=== PATIENT | female | born 2000 ===

== ENCOUNTER 2025-01-09 15:04 | Inpatient (IN) | payer OTHER ==
[~2025-01-09] VITALS: Ht 165.1 cm; Wt 90.9 kg
[2025-01-10 14:37] VITALS: BP 122/75
[2025-01-10] MEDS ORDERED: TraZODone HCl 50 MG Tab PO PRN (14:50)
[2025-01-10] MEDS ORDERED: Melatonin 3 MG Tab PO PRN (14:50)
[2025-01-10] MEDS ORDERED: Acetaminophen 325 MG TABLET PO PRN (14:50)
[2025-01-10] MEDS ORDERED: Aluminum Hydroxide 320MG/5ML 473 ML PO PRN (14:50)
[2025-01-10] MEDS ORDERED: Calcium Carbonate 500 MG Tab Chew PO PRN (14:50)
[2025-01-10] MEDS ORDERED: Polyethylene Glycol 3350 17 gm PO PRN (14:50)
[2025-01-10] MEDS ORDERED: OLANZapine ODT 10 MG Tab MM PRN (14:50)
[2025-01-10] MEDS ORDERED: FLU VACC TS2024-25(6MOS UP)/PF 45 MCG/0.5 ML SYRINGE IM SCH (14:55)
[2025-01-10] MEDS ORDERED: Ibuprofen 600 MG Tab PO PRN (14:55)
[2025-01-10] MEDS ORDERED: Haloperidol 5 MG Tab PO PRN (14:55)
[2025-01-10] MEDS ORDERED: Haloperidol Lactate Inj. 5 MG/ML Injection IM PRN (14:55)
[2025-01-10] MEDS ORDERED: DiphenhydrAMINE HCl 50 MG Cap PO PRN (14:55)
[2025-01-10] MEDS ORDERED: LORazepam 2 MG/ML 1ML Injection IM PRN (15:00)
[2025-01-10] MEDS ORDERED: OLAN5 PO (15:02)
[2025-01-10] MEDS ORDERED: GABA300 PO (15:03)
[2025-01-10] MEDS ORDERED: SENNA LAXATIVE8.6 MG PO (15:05)
[2025-01-10] MEDS ORDERED: Ondansetron 4 MG SoluTab MM PRN (15:05)
[2025-01-10] MEDS ORDERED: DOCU100 PO (15:06)
[2025-01-10] MEDS ORDERED: BUPRENORPHIN-N1 EAC1 SL (15:07)
[2025-01-10 15:39] VITALS: BP 122/75
--- NOTE | 2025-01-10 18:17 | NUR ---
ADMISSION SUMMARY PT ADMITTED FROM [facility] IN [place]. PT HAS DELUSIONS OF BEING IN THE WITNESS PROTECTION PROGRAM AND BEING IN THE [employer]. PT NOT AWARE THAT SHE IS IN A PSYCHIATRIC FACILITY, BUT BELIEVES THAT SHE IS IN WITNESS PROTECTION. SHE DOES NOT WISH TO GO BY LEONOR SINCE SHE BELIEVES THAT SHE IS IN [place]IDING AND WISHES TO GO BY "ZARIYYA" INSTEAD. SHE DENIES SI, HI, OR ANY HALLUCINATIONS. PT ORIENTED TO THE UNIT, SHOWERED, AND ATE MEALS WITH PEERS. PT TAKES SUBOXONE AT HOME AND REQUESTING SUBOXONE TO BE ORDERED WHILE IN HOSPITAL. PT MONITORED VIA Q15 ROUNDING FOR SAFETY. WILL REPORT TO ONCOMING RN.
[2025-01-10 20:22] VITALS: BP 118/73
[2025-01-10] MEDS ORDERED: OLANZapine 10 MG Tab PO SCH (21:00)
[2025-01-10] MEDS ORDERED: Buprenorphine HCL/Naloxone HCL 8MG-2MG Tab SL SCH (21:00)
--- NOTE | 2025-01-11 04:28 | NUR ---
SHIFT SUMMARY PT IN BED AT START OF SHIFT, AWAKES EASILY. SHE IS ORIENTED TO SELF, AND STATES SHE KNOWS SHE IS AT A MEDICAL FACILITY. PT STATED HER MOOD "I'M PISSED OFF. I'M GOING INTO WITNESS PROTECTION SO THIS IS BULLSHIT." PT AFFECT IS IRRITABLE/FRUSTRATED THAT SHE IS HERE, BUT REMAINED CALM AND COOPERATIVE WITH CARE. PT REMINDED OF UNIT ORIENTATION/PROTOCOLS. PT HAD EVENING SNACK. SHE WAS COMPLIANT WITH MEDICATIONS AND RECEIVED PRN TRAZODONE FOR SLEEP. PT WENT BACK TO BED AFTER SNACK AND HAS APPEARED TO BE SLEEPING THROUGHOUT THE NIGHT. Q15 MINUTE CHECKS TO CONTINUE PER UNIT PROTOCOL.
[2025-01-11 08:22] VITALS: BP 105/61
[2025-01-11] MEDS ORDERED: Multivitamins 1 Tab PO SCH (09:00)
[2025-01-11] MEDS ORDERED: DiphenhydrAMINE HCl 50 MG/ML 1ML Vial IM PRN (09:00)
[2025-01-11] MEDS ORDERED: LORazepam 2 MG Tab PO PRN (09:00)
[2025-01-11] MEDS ORDERED: Nicotine Polacrilex 2 MG Gum PO PRN (15:50)
--- NOTE | 2025-01-11 16:39 | NUR ---
SHIFT SUMMARY PT A/O X PERSON, PLACE, AND TIME. SHE IS NOT ALERT TO HER CURRENT SITUATION. SHE BELIEVES THAT SHE NEEDS TO GO INTO THE WITNESS PROTECTION PROGRAM. SHE IS COOPERATIVE WITH CARE AND COMPLIANT WITH HER MEDICATIONS. SHE DID NOT ATTEND GROUPS THIS SHIFT BUT DID ATTEND MEALS. SHE IS BEGINNING TO INTERACT MORE WITH OTHERS AND IS OUT ON THE MILEU AT THIS TIME. SHE DENIES SI, HI, OR ANY HALLUCINATIONS BUT HAS PARANOID DELUSIONS AT TIMES. SHE BELIEVES THAT SHE HAS MULTIPLE "GURVINDER"S IN HER BODY. SHE IS MONITORED VIA Q15 ROUNDING FOR SAFETY.
[2025-01-11 20:51] VITALS: BP 120/79
--- NOTE | 2025-01-12 04:15 | NUR ---
SHIFT SUMMARY PT IN BED AT START OF SHIFT, AWAKES EASILY. PT WAS INITIALLY PLEASANT AND CALM, DENIED ANY SI, HI OR HALLUCINATIONS, BUT DURING ASSESSMENT THE PATIENT BECAME "IRRITATED" WITH QUESTIONS AND STATED THAT SHE HAS "VINOD IMPLANTS" AND TALKING ABOUT BEING "HARD WIRED". PT ORIENTED TO SELF AND PLACE, SHE IS STILL STATING THAT SHE IS IN THE WITNESS PROTECTION PROGRAM. PT HAD EVENING SNACK AND WAS COMPLIANT WITH EVENING MEDS. SHE DECLINED NEEDING ANY MEDICATION TO ASSIST WITH SLEEPING. PT HAS BEEN IN BED SINCE AROUND 2029, AND APPEARS TO HAVE SLEPT WELL. Q15 MINUTE CHECKS TO CONTINUE PER UNIT PROTOCOL.
[2025-01-12 06:51] LABS: CHOL/HDL RATIO 3.1; Cholesterol 118 mg/dL (50-200); HDL Cholesterol 38 mg/dL (>39); LDL/HDL RATIO 1.6; Low Density Lipoprotein Chol 61 mg/dL (0-110); Triglycerides 96 mg/dL (30-140); Very Low Density Lipoprot Chol 19 mg/dL (6-28)
[2025-01-12 08:13] VITALS: BP 114/67
--- NOTE | 2025-01-12 15:41 | NUR ---
SHIFT ASSESSMENT: PT WAS VERY COOPERATIVE WITH CARE, SHE DENIED SI, HI, AVH, ANXIETY AND PAIN. HER MOOD WAS, "I THINK IT'S GOOD." PT HAS ATTENDED GROUPS AND PARTICIPATED IN THE PT MILIEU. HER AFFECT IS EUTHYMIC, PT IS PRESENTLY RESTING IN BED. NO MENTION OF VINOD IMPLANTS, BEING HARD WIRED OR THE WITNESS PROTECTION PROGRAM. SHE HAS BEEN PLEASANT TODAY.
--- NOTE | 2025-01-12 19:24 | NUR ---
PT COMPLAINED OF CONSTIPATION X3 DAYS, MIRALAX 17GMS GIVEN. PT IN GOOD HUMOR AND WALKING THE HALLS WITH A PEER.
[2025-01-12 20:18] VITALS: BP 128/70
--- NOTE | 2025-01-13 04:13 | NUR ---
SHIFT SUMMARY PT PRESENT IN HALLWAY, TALKING AND WALKING WITH PEERS AT START OF SHIFT. SHE IS PLEASANT AND COOPERATIVE WITH CARE. DENIES ANY SI, HI, THOUGHTS OF SELF HARM OR ANY HALLUCINATIONS. SHE DID NOT MENTION ANYTHING ABOUT BEING IN THE WITNESS PROTECTION PROGRAM. PT HAD EVENING SNACK, WAS COMPLIANT WITH MEDICATIONS AND RECEIVED PRN TRAZODONE. PT WENT TO BED AROUND 2130 AND HAS APPEARED TO SLEEP WELL. Q15 MINUTE CHECKS TO CONTINUE PER UNIT PROTOCOL FOR SAFETY.
[2025-01-13 08:09] VITALS: BP 112/66
--- NOTE | 2025-01-13 09:55 | NUR ---
SHIFT ASSESSMENT: PT IS PLEASANT AND COOPERATIVE WITH CARE, SHE DENIED FEELINGS OF SELF-HARM, HI, AVH ADN ANXIETY. SHE COMPAINED OF HEADACHE PAIN 3/10w AND WAS GIVEN TYLENOL 650MG WHICH WAS EFFECTIVE IN REDUCING THE PAIN TO 2/10w. PT IS ACTIVE IN THE PT [facility] AND IS PARTICIPATING IN GROUPS. SHE HAS MADE FRIENDS WITH A PEER AND EXPRESSED GRATEFULNESS FOR THE PEER.
--- NOTE | 2025-01-13 10:37 | NUR ---
MENTAL HEALTH HOLD INFORMATION SW received electronic copy of General Judgement of Dismissal on this day. Copy placed in patient's chart
--- NOTE | 2025-01-13 10:57 | NUR ---
HOSPITAL DISCHARGE INFORMATION PHARMACY: [facility] PHONE= [phone] FAX= [facility] WILL ASSIST IN PCP ETELVINA/FOLLOW UP [facility] FOLLOW UP ON 02/07/25 TRANSPORT: [facility]ER ON Thursday01/14/25 AT 1330 OR [phone]
--- NOTE | 2025-01-13 17:40 | NUR ---
PT TOOK A NAP THIS AFTERNOON, SHE HAS CONTINUED TO BE COOPERATIVE WITH CARE AND PLEASANT TO HER PEERS. SHE IS EATING DINNER AT THIS TIME. CONTINUING TO MONITOR FOR SAFETY WITH Q15 MINUTE CHECKS.
[2025-01-13] MEDS ORDERED: TRAZ50 PO (18:17)
[2025-01-13 20:55] VITALS: BP 114/66
--- NOTE | 2025-01-14 05:07 | NUR ---
SHIFT SUMMARY PATIENT UP AMBULATING IN DAN, VISITING WITH PEERS. DENIES SI, HI, AVH. VERBALIZED THAT SHE IS FEELING "GREAT" AND IS EAGER TO BE GOING HOME. COOPERATIVE WITH MEDICATIONS. APPEARS TO BE SLEEPING WELL T/O NIGHT RESP EVEN AND UNLABORED. CONTINUE TO MONITOR Q15MIN
[2025-01-14 08:19] VITALS: BP 106/68
--- NOTE | 2025-01-14 14:28 | NUR ---
DISCHARGE SUMMARY PT DC HOME VIA TRANSPORT AT 1313, ALL BELONGINGS RETURNED, DISCHARGE INSTRUCTIONS PROVIDED, PT STATED UNDERSTANDING OF MEDICATION SCRIPTS THAT WERE SENT TO THE PHARMACY PER HER REQUEST, FOLLOW UP APPT ON FEB 07.
== END 2025-01-14 13:13 | disposition home or self-care (01) | DRG 885 ==
LOC: BHU 15:04
PROVIDERS: ADMIT Student in an Organized Health Care Education/Training Program
DX: F20.0 Paranoid schizophrenia (principal); R45.851 Suicidal ideations; F11.20 Opioid dependence, uncomplicated; Z79.1 Long term (current) use of non-steroidal anti-inflammatories (NSAID); Z79.899 Other long term (current) drug therapy
CPT/HCPCS: 36415; 80061; 83036; A9270